=== PATIENT | male | born 2000 | race Caucasian/White ===

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

== ENCOUNTER 2023-12-01 09:33 | Emergency (ER) | payer MEDICAID ==
[~2023-12-01] VITALS: Ht 180.3 cm; Wt 56.0 kg
[2023-12-01 09:57] VITALS: BP 129/66; PULSE 108; O2SAT 99
[2023-12-01 10:09] VITALS: RESP 32
[2023-12-01 10:26] LABS: BASOPHILS # (AUTO) 0.1 X10'3 (0-0.2); BASOPHILS % (AUTO) 0.5 % (0-1); EOSINOPHILS % (AUTO) 0.1 % (0-6); HEMATOCRIT 50.4 % (42.0-52.0); HEMOGLOBIN 17.5 g/dl (14.0-17.9); LYMPHOCYTES # (AUTO) 2.1 X10'3 (1.1-4.8); LYMPHOCYTES % (AUTO) 14.9 % (21-51); MEAN CORPUSCULAR HEMOGLOBIN 33.1 PG (27.0-31.0); MEAN CORPUSCULAR HGB CONC 34.8 g/dL (33.0-36.5); MEAN CORPUSCULAR VOLUME 95.4 FL (78-98); MONOCYTES # (AUTO) 0.6 X10'3 (0-0.9); MONOCYTES % (AUTO) 4.5 % (2-12); NEUTROPHILS # (AUTO) 11.3 X10'3 (1.8-7.7); PLATELET COUNT 247 X10'3 (140-440); RED BLOOD COUNT 5.29 X10'6 (4.70-6.10); RED CELL DISTRIBUTION WIDTH 13.3 % (11.5-14.5); WHITE BLOOD COUNT 14.2 X10'3 (4.5-11.0)
[2023-12-01 10:50] LABS: ALBUMIN 5.1 G/DL (3.4-5.0); ANION GAP 22 (8-16); BLOOD UREA NITROGEN 11 MG/DL (7-18); BUN/CREATININE RATIO 14.5 (10.0-20.0); CHLORIDE 98 MMOL/L (99-107); CREATININE 0.76 MG/DL (0.60-1.10); ETHANOL 20 MG/DL (<10); GLUCOSE 66 MG/DL (70-104); POTASSIUM 3.8 MMOL/L (3.5-5.1); SODIUM 138 MMOL/L (135-145); THYROID STIMULATING HORMONE 1.04 ulU/ml (0.34-4.50); TOTAL CARBON DIOXIDE 18.3 MMOL/L (24-32); eCRCL 119 ML/MIN; eGFR > 90 ML/MIN
[2023-12-01] MEDS: ondansetron/PF 4mg/2ml inj IV ONE (11:10)
[2023-12-01] MEDS: pantoprazole 40 MG vial IV ONE (11:19)
[2023-12-01] MEDS: normal saline 1000ml 1,000 ML IV ONE (11:20)
[2023-12-01] MEDS: diazepam inj 5 MG/ML inj. IV ONE (11:20)
[2023-12-01 13:02] LABS: BILIRUBIN,URINE NEGATIVE (Neg); CLARITY,URINE SLIGHTLY CLOUDY (Clear); COLOR,URINE YELLOW (Yellow); GLUCOSE, URINE NEGATIVE (Neg); KETONES,URINE >=80 mg/dl (Neg); LEUKOCYTE ESTERASE ,URINE TRACE (Neg); NITRITES, URINE NEGATIVE (Neg); OCCULT BLOOD,URINE TRACE-INTACT (Neg); PH,URINE 5.5 (4.8-8.0); PROTEIN,URINE NEGATIVE (Neg); UROBILINOGEN,URINE 0.2 E.U/dL (0.2-1.0)
[2023-12-01 13:09] LABS: UA COLLECTION TYPE CLN CATCH MIDSTREAM
[2023-12-01 13:10] LABS: BACTERIA,URINE 3+ /HPF (Neg)
[2023-12-01 13:11] LABS: MUCUS STRANDS NONE SEEN /LPF (Neg); SQUAMOUS EPITHELIAL CELL,UR FEW /LPF (FEW); TRANSITIONAL EPI CELLS,URINE NONE SEEN /HPF; URINE AMPHETAMINE SCREEN NEGATIVE (Neg); URINE BARBITUATE SCREEN NEGATIVE (Neg); URINE BENZODIAZEPINES SCREEN NEGATIVE (Neg); URINE CANNABINOID SCREEN POSITIVE (Neg); URINE COCAINE SCREEN NEGATIVE (Neg); URINE METHADONE SCREEN NEGATIVE (Neg); URINE PHENCYCLIDINE SCREEN NEGATIVE (Neg); WBC CLUMPS,URINE FEW /HPF (NEGATIVE)
[2023-12-01] MEDS ORDERED: NO HOME MEDS (13:19)
[2023-12-01] MEDS: nicotine 14mg patch - 24hr TD ONE (13:40)
[2023-12-01] MEDS: DOXYCYCLINE 100MG CAPSULE PO ONE (13:50)
[2023-12-01] MEDS ORDERED: DOXY-1 PO (14:04)
[2023-12-01] MEDS: LORazepam 1 MG tablet PO ONE (14:47)
[2023-12-01] MEDS: NICOTINE POLACRILEX 2 MG LOZENGE BC PRN (14:48)
[2023-12-01] MEDS: nicotine 21mg patch - 24 hr TD ONE (14:48)
[2023-12-01] MEDS ORDERED: NICOTINE POLACRILEX 2 MG LOZENGE BC PRN (15:15)
[2023-12-01] MEDS: lactose-reduced food (Ensure Enlive) - 237ml bottle PO SCH (18:08)
[2023-12-01 18:41] VITALS: TEMP 97.8
[2023-12-01] MEDS ORDERED: DOXYCYCLINE 100MG CAPSULE PO SCH (20:00)
[2023-12-02] MEDS ORDERED: nicotine 7mg patch - 24hr TD SCH (08:00)
[2023-12-05 06:28] LABS: CHLAMYDIA TRACHOMATIS, NAA Negative (Negative)
== END 2023-12-01 18:43 | disposition home or self-care (01) ==
LOC: ER 09:34
DX: R45.851 Suicidal ideations (principal); F10.129 Alcohol abuse with intoxication, unspecified; F41.9 Anxiety disorder, unspecified; F32.A Depression, unspecified; Z72.89 Other problems related to lifestyle; Z79.899 Other long term (current) drug therapy; Z20.822 Contact with and (suspected) exposure to COVID-19; Y90.9 Presence of alcohol in blood, level not specified
CPT/HCPCS: 36415; 80048; 80305; 80320; 81001; 83735; 84443; 85025; 87491; 87591; 87811; 93005; 96361; 96374; 96375; 99285; C9113; J2405; J3360; J7030; 99284